=== PATIENT | female | born 1940 | race Caucasian/White ===

== ENCOUNTER 2016-10-21 21:14 | Emergency (ER) | payer MEDICARE ==
--- NOTE | 2016-10-23 15:01 | ER ---
ADMIT: 10/21/2016 RM/LOC: ER [facility] MR#: [id number] [id number] [place] [address] Emergency Room Report SEX: F AGE: 76 : 1940 DATE: 10/21/2016 ADDENDUM: This patient comes to the ER because she has a G-tube and it fell out at the skilled nursing, [place]. She denies any pain or vomiting. Her belly is soft. I replaced with 20 in the abdominal stoma. It went in without any difficulty at all. Placement was confirmed with Gastrografin. We will have her continue with all regular medications and orders. Follow up with Dr. Woodward as needed. YANET Welch / Nilson Henderson MD / modl JOB #: [id number] CC: Nilson Henderson MD, Attending Physician
== END 2016-10-21 23:47 | disposition home or self-care (01) ==
LOC: ER 21:14
PROC: 0DH64UZ Insertion of Feeding Device into Stomach, Percutaneous Endoscopic Approach (ICD-10-PCS; principal; 2016-10-21)
DX: Z43.1 Encounter for attention to gastrostomy (principal); I10 Essential (primary) hypertension; J44.9 Chronic obstructive pulmonary disease, unspecified; F41.9 Anxiety disorder, unspecified; Z88.6 Allergy status to analgesic agent; Z88.1 Allergy status to other antibiotic agents; Z79.899 Other long term (current) drug therapy